=== PATIENT | male | born 1945 | race Two or more races ===

== ENCOUNTER 2019-09-03 06:25 | Day surgery (SDC) | payer OTHER ==
[~2019-09-03 06:25] MED LIST: CIPRO500 MG PO; HYZAAR 100/25 T1 TAB; INTESTINEX680 MG PO
== END 2019-09-03 14:50 | disposition home or self-care (01) ==
LOC: AMB-ENDOS 06:25
PROVIDERS: ATTEND Colon & Rectal Surgery
DX: D12.3 Benign neoplasm of transverse colon (principal); K64.1 Second degree hemorrhoids